=== PATIENT | male | born 2000 | race African-American/Black ===

== ENCOUNTER 2022-11-23 03:59 | Emergency (ER) | payer SELFPAY ==
[~2022-11-23] VITALS: Ht 182.9 cm; Wt 74.1 kg
[~2022-11-23 03:59] MED LIST: BIKTARVY 50-201 EACH PO
[2022-11-23 04:07] VITALS: BP 139/68; PULSE 63; TEMP 97.7
[2022-11-23] MEDS ORDERED: PREDNISONE20 MG PO (04:24)
[2022-11-23] MEDS ORDERED: CEPHALEXIN500 M1 PO (04:24)
[2022-11-23] MEDS ORDERED: ATARAX 25MG25 MG/TAB PO (04:24)
== END 2022-11-23 04:59 | disposition home or self-care (01) ==
LOC: COL.ER 03:59
DX: T78.40XA Allergy, unspecified, initial encounter (principal)
CPT/HCPCS: J1100; J1200